=== PATIENT | female | born 1940 | race Caucasian/White ===

== ENCOUNTER 2018-08-22 08:25 | Outpatient (CLI) | payer OTHER ==
[~2018-08-22 08:25] MED LIST: AMARLY PO; ASA81 MG PO; AVAPRO150 MG PO; CALCIUM GLUBIONATE 1.8 GM/5 ML PO; CRESTOR10 MG PO; JANUVIA100 MG PO; MACROBID 100 M100 MG PO; METFORMIN HCL750 MG PO; ULTRACET PO
== END 2018-08-22 08:38 | disposition home or self-care (01) ==
LOC: RX STUDY 08:25
DX: K57.32 Diverticulitis of large intestine without perforation or abscess without bleeding (principal); R19.4 Change in bowel habit; R10.32 Left lower quadrant pain; N82.3 Fistula of vagina to large intestine

== ENCOUNTER 2018-11-14 07:15 | Inpatient (IN) | payer OTHER ==
[~2018-11-14] VITALS: Ht 175.3 cm; Wt 77.1 kg
[2018-11-14] MEDS ORDERED: COZAAR50 MG PO (09:28)
[2018-11-14] MEDS ORDERED: CARDIZEM30 MG PO (09:29)
[2018-11-14] MEDS ORDERED: HYDROCHLOROTH12.5 M1 PO (09:29)
[2018-11-14] MEDS ORDERED: JANUVIA100 MG (09:50)
[2018-11-22] MEDS ORDERED: GLIMEPIRIDE4 MG PO (08:49)
[2018-11-25] MEDS ORDERED: ULTRACET PO (17:16)
[2018-11-25] MEDS ORDERED: INTESTINEX680 M1 PO (17:16)
== END 2018-11-25 19:23 | disposition home or self-care (01) | DRG 330 ==
LOC: EDSTATUS 07:15 → ADM 07:15 → O/R 11-21 06:35 → SURH 11-21 06:35
PROVIDERS: ADMIT Surgery
PROC: 0DJD8ZZ Inspection of Lower Intestinal Tract, Via Natural or Artificial Opening Endoscopic (ICD-10-PCS; 2018-11-21)
PROC: 0UQG0ZZ Repair Vagina, Open Approach (ICD-10-PCS; 2018-11-21)
PROC: 4A12X4Z Monitoring of Cardiac Electrical Activity, External Approach (ICD-10-PCS; 2018-11-21)
PROC: 0DTN4ZZ Resection of Sigmoid Colon, Percutaneous Endoscopic Approach (ICD-10-PCS; principal; 2018-11-21 20:15)
DX: K57.32 Diverticulitis of large intestine without perforation or abscess without bleeding (principal); N82.3 Fistula of vagina to large intestine; E11.9 Type 2 diabetes mellitus without complications; Z79.84 Long term (current) use of oral hypoglycemic drugs; I11.9 Hypertensive heart disease without heart failure; G47.33 Obstructive sleep apnea (adult) (pediatric); N39.3 Stress incontinence (female) (male); N81.11 Cystocele, midline; N81.6 Rectocele; N81.5 Vaginal enterocele

== ENCOUNTER 2021-10-10 07:08 | Outpatient (CLI) | payer OTHER ==
[~2021-10-10 07:08] MED LIST changes: +CARDIZEM30 MG PO; +COZAAR50 MG PO; +GLIMEPIRIDE4 MG PO; +HYDROCHLOROTH12.5 M1 PO; +INTESTINEX680 M1 PO; +JANUVIA100 MG
== END 2021-10-10 07:14 | disposition home or self-care (01) ==
LOC: RX STUDY 07:08
PROVIDERS: ATTEND Internal Medicine Gastroenterology
DX: K21.9 Gastro-esophageal reflux disease without esophagitis (principal); R13.10 Dysphagia, unspecified